=== PATIENT | female | born 1955 | race Two or more races ===

== ENCOUNTER 2022-12-08 06:38 | Day surgery (SDC) | payer OTHER | END 2022-12-08 12:15 | disposition home or self-care (01) | LOC: AMB-ENDOS 06:38 | PROVIDERS: ATTEND Surgery | DX: D12.8 Benign neoplasm of rectum (principal); K57.30 Diverticulosis of large intestine without perforation or abscess without bleeding; K59.09 Other constipation; K64.8 Other hemorrhoids; D12.7 Benign neoplasm of rectosigmoid junction; Z88.0 Allergy status to penicillin ==